=== PATIENT | female | born 1945 | race American Indian/Alaskan Native ===

== ENCOUNTER 2017-08-22 11:02 | Day surgery (SDC) | payer BC ==
[2017-08-14 13:41] VITALS: BMI 29.9
[~2017-08-22 11:02] MED LIST: HYDROmorphone 1 mg/ml ISec IVP ONE
[2017-08-22 11:43] VITALS: O2SAT 98
[2017-08-22 11:48] LABS: BASO # 0.02 K/mm3 (0.0-2.0); BASO % 0.6 % (0.0-3.0); EOS # 0.1 (0.0-0.7); EOS % 4.2 % (1.5-5.0); GRAN # 1.62 (1.4-6.5); GRAN % 48.2 % (50.0-68.0); HEMOGLOBIN 11.2 g/dL (12.0-16.0); LYMPH # 1.1 (1.2-3.4); LYMPH % 33.6 % (22.0-35.0); MEAN CELL VOLUME 88.9 fl (80.0-105.0); MEAN CORPUSCULAR HEMOGLOBIN 28.2 pg (25.0-35.0); MEAN CORPUSCULAR HGB CONC 31.7 g/dl (31.0-37.0); MEAN PLATELET VOLUME 10.5 fl (7.0-11.0); MONO # 0.5 (0.1-0.6); MONO % 13.4 % (1.0-6.0); RBC 3.97 10^6/uL (3.5-6.1); RED CELL DISTRIBUTION WIDTH 14.4 % (11.5-14.5); WHITE BLOOD COUNT 3.4 10^3/ul (4.5-11.0)
[2017-08-22 12:00] LABS: BLOOD UREA NITROGEN 16 mg/dL (7-21); CALCIUM 11.3 mg/dL (8.4-10.5); GFR AFRICAN-AMERICAN > 60; GFR NON-AFRICAN AMERICAN > 60
[2017-08-22 12:01] LABS: INR 0.97 (0.93-1.08); PARTIAL THROMBOPLASTIN TIME 34.8 Seconds (25.1-36.5); PROTHROMBIN TIME 11.1 SECONDS (9.4-12.5)
[2017-08-22] MEDS ORDERED: Lidocaine 2% Inj (20ml) ONE (12:38)
[2017-08-22] MEDS ORDERED: Vancomycin 500 mg (Oral/Rectal USE) ONE (12:38)
[2017-08-22] MEDS ORDERED: Midazolam 2 MG/2 ML VIAL ONE ×2 (12:39→13:47)
[2017-08-22] MEDS ORDERED: HEPARIN SODIUM/NS 2,000 ML IV ONE (12:39)
[2017-08-22] MEDS ORDERED: Oxycodone/Acetaminophen 5/325 mg Tab PO PRN (15:07)
[2017-08-22] MEDS ORDERED: Sodium Chloride 0.45% 1,000 ML IV SCH (15:15)
[2017-08-22] MEDS ORDERED: Oxycodone/Acetaminophen 5/325 mg Tab ONE (15:27)
[2017-08-22] MEDS ORDERED: HYDROmorphone 1 mg/ml ISec IVP STA (15:30)
[2017-08-22] MEDS ORDERED: HYDROmorphone 1 mg/ml ISec ONE (15:35)
[2017-08-22 16:16] VITALS: BP 132/77; PULSE 64; RESP 18; TEMP 98.3
--- NOTE | 2017-08-22 19:29 | VASCULAR ---
PROCEDURE: Ultrasound and fluoroscopic right internal jugular venous access port. CLINICAL HISTORY: Hodgkin's lymphoma.Venous port for chemotherapy. PHYSICIAN(S): Neto Finnegan M.D. TECHNIQUE: The relative risks and indications of the procedure were explained to the patient and consent obtained. The patient was placed supine on the arteriogram table and the right neck and chest prepped and draped in the usual sterile fashion. Conscious sedation monitoring was provided throughout the procedure by a nurse. Antibiotics were given prior to the procedure. Under direct ultrasound guidance, the right internal jugular vein was punctured with a micro-puncture set. A 0.035 angled Glidewire was advanced into the IVC. A 4 cm incision was made below the right clavicle and the pocket blunted dissected. A 8 Welsh single-lumen catheter, 21 cm long, was advanced to the SVC/RA junction. The catheter was trimmed and attached to the port. The port aspirates and injects easily. The port was placed in the pocket and closed in 2 layers. The patient tolerated the procedure well. IMPRESSION: Ultrasound and fluoroscopically placed right internal jugular venous access port.
== END 2017-08-22 16:40 | disposition home or self-care (01) ==
LOC: SDSVAS 11:02
PROVIDERS: ATTEND Radiology Vascular & Interventional Radiology
DX: C83.99 Non-follicular (diffuse) lymphoma, unspecified, extranodal and solid organ sites (principal); I10 Essential (primary) hypertension
CPT/HCPCS: 36415; 36561; 76937; 77001; 80048; 85025; 85610; 85730; 99152; 99153; C1769; C1788; J1170; J1644; J2250; J2405; J3010; J7030